=== PATIENT | female | born 1945 | race Caucasian/White ===

== ENCOUNTER 2023-06-26 14:23 | Inpatient (IN) | payer MEDICARE, OTHER ==
[~2023-06-26] VITALS: Ht 160 cm; Wt 49.0 kg
[2023-06-26 15:05] LABS: DIFFERENTIAL COMMENT 0; RED CELL DISTRIBUTION WIDTH 12.6 % (12.3-17.7)
[2023-06-26 15:13] LABS: BASOPHILS % (AUTO) 0.2 % (0.0-2.0); EOSINOPHILS # (AUTO) 0.1 K/uL (0.0-0.7); EOSINOPHILS % (AUTO) 1.5 % (0.0-7.0); HEMOGLOBIN 14.7 g/dL (10.9-14.3); LYMPHOCYTES # (AUTO) 1.8 K/uL (0.8-4.8); LYMPHOCYTES % (AUTO) 25.1 % (20.5-51.5); MEAN CORPUSCULAR HEMOGLOBIN 32.3 uug (24.7-32.8); MEAN CORPUSCULAR HGB CONC 34 g/dL (32.3-35.6); MEAN CORPUSCULAR VOLUME 94.6 fL (75.5-95.3); MONOCYTES # (AUTO) 0.5 K/uL (0.1-1.30); MONOCYTES % (AUTO) 7.4 % (0.0-11.0); NEUTROPHILS # (AUTO) 4.7 K/uL (1.8-8.9); NEUTROPHILS % (AUTO) 65.8 % (38.5-71.5); PLATELET COUNT (AUTO) 289 K/uL (179-408); RED BLOOD CELL COUNT(AUTO) 4.54 MIL/uL (3.63-4.92); WHITE BLOOD COUNT (AUTO) 7.1 K/uL (3.8-11.8)
[2023-06-26 15:15] LABS: *BILIRUBIN,URIN NEGATIVE (NEGATIVE); *BLOOD, URINE NEGATIVE (NEGATIVE); *CLARITY,URINE CLEAR (CLEAR); *COLOR,URINE YELLOW (YELLOW); *KETONES,URINE NEGATIVE (NEGATIVE); *PROTEIN,URINE 1+ (NEGATIVE); LEUKOCYTE ESTERASE ,URINE 1+ (NEGATIVE); NITRITE, URINE NEGATIVE (NEGATIVE); PH,URINE 6.5 (5.0-8.0); UGLUCOSE NEGATIVE (NEGATIVE)
[2023-06-26 15:19] LABS: CALCIUM 8.8 mg/dL (8.5-10.1); CARBON DIOXIDE 23 mmol/L (21-32); CHLORIDE 106 mmol/L (98-107); CREATININE 1.2 mg/dL (0.6-1.3); GLUCOSE 181 mg/dL (74-106); SODIUM SERUM 141 mmol/L (136-145); UREA NITROGEN, BLOOD 17 mg/dL (7-18)
[2023-06-26 15:20] LABS: ETHANOL < 3 MG/DL (0-10)
[2023-06-26 15:21] LABS: AMMONIA 18 umol/L (11-32)
[2023-06-26 15:27] LABS: BACTERIA,URINE FEW /HPF (NONE SEEN); RBC,URINE NONE SEEN /HPF (0-3); SQUAMOUS EPITHELIAL CELL,UR FEW /HPF (NONE SEEN); WBC,URINE 0-3 /HPF (0-3)
[2023-06-26 15:32] LABS: LACTIC ACID 2.3 mmol/L (0.4-2.0)
[2023-06-26 15:32] LABS: *AMPHETAMINE, URINE NEGATIVE (NEGATIVE); *BARBITURATE, URINE NEGATIVE (NEGATIVE); *BENZODIAZEPINE, URINE NEGATIVE (NEGATIVE); *CANNABINOID, URINE NEGATIVE (NEGATIVE); *COCCAINE, URINE NEGATIVE (NEGATIVE); *OPIATE, URINE NEGATIVE (NEGATIVE); *PHENCYCLIDINE SCREEN,URINE NEGATIVE (NEGATIVE); FENTANYL, URINE NEGATIVE (NEGATIVE)
[2023-06-26 15:35] LABS: ALANINE AMINOTRANSFERASE 27 U/L (14-59); ALBUMIN 3.8 g/dL (3.4-5.0); ALKALINE PHOSPHATASE 96 U/L (50-136); ASPARTATE AMINOTRANSFERASE 8 U/L (15-37); BILIRUBIN,TOTAL 0.4 mg/dL (0.2-1.0)
[2023-06-26 15:36] LABS: ACETAMINOPHEN < 10.0 ug/mL (10-30)
[2023-06-26 15:47] LABS: THYROID STIMULATING HORMONE 1.852 mIU/mL (0.358-3.740)
[2023-06-26 15:49] LABS: BILIRUBIN,DIRECT < 0.1 mg/dL (0.0-0.2)
[2023-06-26] MEDS ORDERED: LISI-782 PO (18:31)
[2023-06-26] MEDS ORDERED: CYAN500L PO (18:32)
[2023-06-26] MEDS ORDERED: ACET325T53 PO (18:34)
[2023-06-26] MEDS ORDERED: DOCU100C36 PO (18:34)
[2023-06-26] MEDS ORDERED: MEMA28CA PO (18:36)
[2023-06-26] MEDS ORDERED: SERT25TA PO (18:37)
[2023-06-26] MEDS ORDERED: LORAZEPAM 0.5 MG TABLET PO PRN (20:00)
[2023-06-26] MEDS ORDERED: MAGNESIUM HYDROXIDE 30 ML LIQUID UDC PO PRN (20:00)
[2023-06-26] MEDS ORDERED: ACETAMINOPHEN 325 MG TABLET PO PRN (20:00)
[2023-06-26] MEDS ORDERED: MAG HYDROX/AL HYDROX/SIMETH 30 ML LIQUID UDC PO PRN (20:00)
[2023-06-26] MEDS ORDERED: TEMAZEPAM 7.5 MG CAPSULE PO PRN (20:00)
[2023-06-26] MEDS: NITROFURANTOIN/NITROFURAN MAC 100 MG CAPSULE PO SCH (20:55)
[2023-06-26 22:19] VITALS: BP 130/50; TEMP 98.2
[2023-06-27 07:50] LABS: ALBUMIN 3.2 g/dL (3.4-5.0); BILIRUBIN,TOTAL 0.4 mg/dL (0.2-1.0); CALCIUM 8.4 mg/dL (8.5-10.1); CREATININE 0.7 mg/dL (0.6-1.3); POTASSIUM 3.7 mmol/L (3.5-5.1); TOTAL PROTEIN, SERUM 6.1 g/dL (6.4-8.2)
[2023-06-27 08:02] VITALS: BP 139/61; TEMP 98; O2SAT 98
[2023-06-27] MEDS: DIVALPROEX 125 MG TABLET.DR PO SCH (10:00)
[2023-06-27] MEDS ORDERED: ACETAMINOPHEN 325 MG TABLET PO PRN (13:15)
[2023-06-27 16:41] VITALS: BP 146/67; TEMP 98; O2SAT 97
[2023-06-27] MEDS: MEMANTINE HCL 10 MG TABLET PO SCH (18:09)
[2023-06-27 20:21] VITALS: BP 129/47; TEMP 98; O2SAT 94
[2023-06-28 08:52] VITALS: BP 158/64; TEMP 98.2; O2SAT 97
[2023-06-28] MEDS: LISINOPRIL 5 MG TABLET PO SCH (09:11)
[2023-06-28] MEDS: DOCUSATE SODIUM 100 MG CAPSULE PO SCH (09:11)
[2023-06-28] MEDS: CYANOCOBALAMIN 1,000 MCG TABLET PO SCH (09:13)
[2023-06-28 16:14] VITALS: BP 108/63; TEMP 98; O2SAT 97
[2023-06-28 19:51] VITALS: BP 133/58; TEMP 98.1; O2SAT 100
[2023-06-29 08:00] VITALS: BP 166/83; TEMP 97.1; O2SAT 99
[2023-06-29 16:00] VITALS: BP_SYST 100; BP_SYST 178; BP_DIAS 41; BP_DIAS 91; TEMP 98; O2SAT 99
[2023-06-29 20:00] VITALS: BP 107/52; TEMP 98.1; O2SAT 98
[2023-06-30 07:30] VITALS: BP 107/71; TEMP 98; O2SAT 94
[2023-06-30 15:25] VITALS: BP 118/67; TEMP 98; O2SAT 94
[2023-06-30 19:58] VITALS: BP 111/72; TEMP 98.1; O2SAT 94
[2023-07-01 08:18] VITALS: BP 156/69; TEMP 98; O2SAT 96
[2023-07-01] MEDS ORDERED: DIVALPROEX 250 MG TABLET.DR PO SCH (13:00)
[2023-07-01] MEDS: DIVALPROEX 125 MG TABLET.DR PO SCH (13:08)
[2023-07-01 16:16] VITALS: BP 140/61; TEMP 98; O2SAT 96
[2023-07-01 20:00] VITALS: BP 120/63; TEMP 98; O2SAT 95
[2023-07-02 09:39] VITALS: BP 159/79; TEMP 98; O2SAT 98
[2023-07-02 15:43] VITALS: BP_SYST 136; BP_SYST 166; BP_DIAS 58; BP_DIAS 91; TEMP 98; O2SAT 91; O2SAT 96
[2023-07-02 20:00] VITALS: BP 135/57; TEMP 97.7; O2SAT 97
[2023-07-02] MEDS: DIVALPROEX SPRINKLE 125 MG CAP.SPRINK PO SCH (20:05)
[2023-07-03 07:30] VITALS: BP 103/64; TEMP 97.8; O2SAT 96
[2023-07-03 16:03] VITALS: BP 183/90; TEMP 98; O2SAT 100
[2023-07-03 20:00] VITALS: BP 106/41; TEMP 98; O2SAT 96
[2023-07-04 07:58] VITALS: BP 113/56; TEMP 97.9; O2SAT 98
[2023-07-04 17:04] VITALS: BP 135/75; TEMP 97.9; O2SAT 99
[2023-07-04 20:00] VITALS: BP 146/84; TEMP 97.8; O2SAT 95
[2023-07-05 08:50] VITALS: BP 134/56; TEMP 98.2; O2SAT 97
[2023-07-05 15:57] VITALS: BP 124/66; TEMP 98; O2SAT 97
[2023-07-05 20:03] VITALS: BP 130/64; TEMP 98.1; O2SAT 100
[2023-07-06 08:18] VITALS: BP 135/64; TEMP 97.8; O2SAT 98
[2023-07-06 16:04] VITALS: BP 125/53; TEMP 97.9; O2SAT 98
[2023-07-06 19:46] VITALS: BP 130/62; TEMP 97.8; O2SAT 96
== END 2023-07-06 19:45 | DRG 885 ==
LOC: ER 14:26 → GPS 18:18
PROVIDERS: ADMIT Psychiatry & Neurology Psychosomatic Medicine; ATTEND Nurse Practitioner Acute Care
DX: F39 Unspecified mood [affective] disorder (principal); N39.0 Urinary tract infection, site not specified; F03.911 Unspecified dementia, unspecified severity, with agitation; E44.0 Moderate protein-calorie malnutrition; F03.93 Unspecified dementia, unspecified severity, with mood disturbance; K21.9 Gastro-esophageal reflux disease without esophagitis; Z86.16 Personal history of COVID-19; Z86.73 Personal history of transient ischemic attack (TIA), and cerebral infarction without residual deficits; Z85.42 Personal history of malignant neoplasm of other parts of uterus; E78.5 Hyperlipidemia, unspecified; I10 Essential (primary) hypertension; J45.909 Unspecified asthma, uncomplicated; Z91.199 Patient's noncompliance with other medical treatment and regimen due to unspecified reason
CPT/HCPCS: 36415; 70450; 71045; 80164; 83605; 84443; 84484; 85025; 85730; 87040; 93005; G0480